=== PATIENT | female | born 1960 | race Caucasian/White ===

== ENCOUNTER → 2023-03-23 | Outpatient (CLI) | payer OTHER ==
[~2023-03-23] MED LIST: CALCIUM CITRAT1 EAC4 PO; EXCEDRIN PM; NAPR500 PO
== END ==
LOC: LAB SHORT 11:15 → LAB 11:15
DX: R30.0 Dysuria (principal)
CPT/HCPCS: 87086; 87147

== ENCOUNTER → 2023-06-13 | Outpatient (CLI) | payer OTHER | END | disposition home or self-care (01) | LOC: PLD 08:57 → LAB SHORT 08:57 → LAB 08:57 | DX: C03.9 Malignant neoplasm of gum, unspecified (principal); C77.0 Secondary and unspecified malignant neoplasm of lymph nodes of head, face and neck | CPT/HCPCS: 88305 ==